=== PATIENT | male | born 1975 | race Caucasian/White ===

== ENCOUNTER 2017-08-16 03:41 | Emergency (ER) | payer OTHER ==
[~2017-08-16] VITALS: Ht 175.3 cm; Wt 89.4 kg
== END 2017-08-16 09:19 | disposition home or self-care (01) ==
LOC: ER 03:41
DX: R10.13 Epigastric pain (principal); E11.9 Type 2 diabetes mellitus without complications

== ENCOUNTER → 2020-07-30 | Emergency (ER) | payer OTHER ==
[~2020-07-30] VITALS: Ht 175.3 cm; Wt 88.9 kg
== END | disposition home or self-care (01) ==
LOC: ER 09:41
DX: S90.31XA Contusion of right foot, initial encounter (principal); W22.8XXA Striking against or struck by other objects, initial encounter; Y93.89 Activity, other specified; Y92.098 Other place in other non-institutional residence as the place of occurrence of the external cause; Y99.8 Other external cause status